=== PATIENT | male | born 1945 | race Hispanic/Latino ===

== ENCOUNTER 2019-06-02 16:45 | Emergency (ER) | payer MEDICARE, OTHER ==
[~2019-06-02] VITALS: Ht 175.3 cm; Wt 104.3 kg
[~2019-06-02 16:45] MED LIST: ASPIRIN81 MG; FINASTERIDE5 MG PO; GABAPENTIN300 MG PO; LOSARTAN POTASS25 MG; METOPROLOL TART25 MG PO; MULTI-VITAMIN1 EACH; SIMVASTATIN40 MG PO; TYLENOL WITH C1 EACH PO; VITAMIN D330 ML
[2019-06-02 17:30] LABS: BASOPHILS # (AUTO) 0.1 (0.0-0.1); BASOPHILS % 0.8 % (0.0-1.0); EOSINOPHILS # (AUTO) 0.5 (0.0-0.4); EOSINOPHILS % 7.4 % (0.0-6.0); HEMATOCRIT 37.4 % (38.2-49.6); HEMOGLOBIN 12.4 g/dL (14.0-18.0); LYMPHOCYTES # (AUTO) 1.5 (1.0-3.2); LYMPHOCYTES % 24.9 % (18.0-39.1); MEAN CORPUSCULAR HGB CONC 33.2 g/dL (31-35); MEAN CORPUSCULAR VOLUME 93.5 fL (81-99); MONOCYTES # (AUTO) 0.9 (0.2-0.8); MONOCYTES % 14.1 % (4.4-11.3); NEUTROPHILS # (AUTO) 3.3 (2.1-6.9); NEUTROPHILS % 52.6 % (38.7-80.0); PLATELET COUNT 162 x10e3/uL (140-360); RED CELL DISTRIBUTION WIDTH 12.9 % (11.7-14.4)
--- NOTE | 2019-06-02 17:45 | Diagnostic Imaging Report ---
Exam: Head CT without contrast History: Syncope, dizziness Comparison studies: None Technique: Axial images were obtained from the skull base to the vertex. Coronal and sagittal images reconstructed from the axial data. Dose modulation, iterative reconstruction, and/or weight based adjustment of the mA/kV was utilized to reduce the radiation dose to as low as reasonably achievable. Radiation dose: Total DLP: 1036 mGy*cm. Estimated effective dose: DLP x 0.015 Intravenous contrast: None Findings: Exam is somewhat limited artifacts related to patient motion. Despite limitations: Scalp: No abnormalities. Bones: No fractures, blastic or lytic lesions. Brain sulci: Mild compensatory dilatation. Ventricles: Normal in size and configuration. No hydrocephalus. Extra-axial spaces: No masses, no fluid collection. Parenchyma: No mass, acute hemorrhage or acute or chronic cortical insults. Ill-defined and confluent hypodensities in the supratentorial white matter are nonspecific but are most compatible with chronic microvascular ischemic changes. Sellar/suprasellar region: No abnormalities. Craniocervical junction: Patent foramen magnum. No Chiari one malformation. Additional findings: * Right intraocular lens replacement. * Atherosclerotic calcifications in the carotid siphons and intradural vertebral arteries. * Changes of prior right canal wall up mastoidectomy. Right mastoid bowl is partially opacified with effusion. Left mastoids are also partially opacified with effusion. IMPRESSION: 1. No acute intracranial abnormalities. 2. Mild to moderate supratentorial chronic microvascular ischemic changes. Signed by: Dr. Dwayne Alston M.D. on 06/02/2019 5:42 PM
--- NOTE | 2019-06-02 17:46 | Diagnostic Imaging Report ---
EXAM: CHEST SINGLE (PORTABLE) DATE: 06/02/2019 4:50 PM INDICATION: Syncope ^ERMD ORDER ^[id number] ^[id number] ^Y COMPARISON: Chest x-ray, 03/25/2019 FINDINGS: Lines and tubes: None The cardiac silhouette is upper normal size allowing for low lung volumes. No focal pulmonary consolidation, pleural effusion or pneumothorax. Scattered markings at the lung bases compatible with mild basilar atelectasis accentuated by low lung volumes. Upper abdomen unremarkable. No acute bony abnormality. Anchors are seen in the left humeral head. IMPRESSION: No evidence for acute disease. Signed by: Dr. Howard Monroy M.D. on 06/02/2019 5:43 PM
[2019-06-02 17:48] LABS: ALANINE AMINOTRANSFERASE 22 IU/L (0-55); ALBUMIN 3.6 g/dL (3.5-5.0); ALKALINE PHOSPHATASE 68 IU/L (40-150); BLOOD UREA NITROGEN 23 mg/dL (7-26); BUN/CREATININE RATIO 20 (6-25); CALCIUM 9.4 mg/dL (8.4-10.2); CARBON DIOXIDE 26 mmol/L (22-29); CHLORIDE 107 mmol/L (98-107); CREATINE KINASE 101 IU/L (30-200); CREATININE, SERUM 1.13 mg/dL (0.72-1.25); EST GLOMERULAR FILTRATION RATE > 60 ML/MIN (60-); GLUCOSE 99 mg/dL (74-118); SODIUM 139 mmol/L (136-145)
[2019-06-02 19:40] LABS: BILIRUBIN,URINE NEGATIVE (NEGATIVE); CLARITY,URINE CLEAR (CLEAR); COLOR,URINE YELLOW (YELLOW); KETONES,URINE NEGATIVE (NEGATIVE); LEUKOCYTE ESTERASE ,URINE NEGATIVE (NEGATIVE); NITRITE,URINE NEGATIVE (NEGATIVE); PROTEIN,URINE DIPSTICK 1+ (NEGATIVE); URINE UROBILINOGEN 0.2 mg/dL (0.2 - 1)
[2019-06-02 19:59] VITALS: BP 134/70
[2019-06-02 20:19] LABS: BACTERIA,URINE MODERATE /HPF; EPITHELIAL CELLS,URINE RARE /LPF; WBC,URINE (MAN) 0-5 /HPF (0-5)
== END 2019-06-02 19:59 | disposition home or self-care (01) ==
LOC: ER 16:45
DX: R55 Syncope and collapse (principal)
CPT/HCPCS: 36415; 70450; 71045; 80053; 81001; 82550; 82553; 84484; 85025; 93005; 99284